=== PATIENT | female | born 1965 | race Caucasian/White ===

== ENCOUNTER 2016-08-28 13:49 | Emergency (ER) | payer OTHER ==
[~2016-08-28] VITALS: Ht 162.6 cm; Wt 90.7 kg
--- NOTE | ~2016-08-28 | EKG ---
[place] [address] [facility] [employer] [place] [address] ELECTROCARDIOGRAM REPORT Name: LYLABLANCA SOTO Room #: DEP [facility]#: [id number] Admission: 08/28/16 Attend Phys: Discharge: 08/28/16 Date of : 63 Report #: [id number] THIS REPORT FOR: //name// [facility] ED Test Date: 2016-08-28 Test Time: 15:40:05 Pat Name: BLANCA ARITA Department: Room: Gender: F Orthotist/Prosthetist: : 1965 Requested By: Bello Azul Order Number: [id number] MD: Ezra Sommers Measurements Intervals [place] Rate: 95 P: 52 MS: 159 QRS: 4 QRSD: 89 T: 4 QT: 397 QTc: 499 Interpretive Statements Sinus rhythm Poor R-wave progression No previous ECG available for comparison Electronically Signed On 08-29-2016 14:22:00 AUTO STRIPER by Ezra Sommers [email or web address] <ELECTRONICALLY SIGNED> By: Ezra Sommers MD, [facility] 08/29/16 1422 1540 1540 Ezra Sommers MD, FACC /EPI
[~2016-08-28 13:49] MED LIST: ACYCLOVIR 400400 MG; ADVAIR 100-501 EACH; ALBUTEROL2.5 MG/0.5; ALBUTEROL2.5 MG/0.5 INH; AMARYL4 MG PO; AZELASTINE137 MCG/0. NASAL; CALCIUM 500 +1 EAC5 PO; CARVEDILOL12.5 MG PO; CIPROFLOXACIN500 M1 PO; CITRATE OF MAG296 ML PO; COLACE100 MG PO; CYTOMEL 25 MCG25 MC1 PO; DILTIAZEM 24HR120 M2 PO; DOXEPIN 10 MG C10 MG PO; DRISDOL50000 UNIT PO; ESTRADIOL TRAN1 EAC2 TOP; FOLIC ACID1 MG; HUMALOG PE100 UNIT/M; HUMALOG100 UNIT/1; IBUPROFEN 600600 M1 PO; IBUPROFEN 800800 M1 PO; KLONOPIN0.5 MG; LAMICTAL XR100 MG PO; LANTUS SOL100 UNIT/1; LANTUS SOL100 UNIT/1 SUBQ; LANTUS100 UNIT/M; LEVOTHYROXIN0.125 M1 PO; LIPITOR80 MG; LIPITOR80 MG PO; LISINOPRIL10 MG PO; LORATIDINE 10 M10 M1; MACRODANTIN25 MG; NASONEX17 GM; NASONEX17 GM NASAL; NORCO 5-325 TA1 EACH PO; OMEPRAZOLE20 MG PO; PRINIVIL10 MG PO; PROVENTIL HFA6.7 G1; REGLAN 10 MG TA10 MG PO; SINGULAIR 10 MG10 M1; SPIRIVA INH; TESSALON PERLE100 MG; TRICOR145 MG PO; VALIUM2 MG PO; ZOFRAN ODT4 MG PO; ZOFRAN4 MG PO; ZPAK PO; ZYRTEC 10 MG TA10 MG PO
[2016-08-28] MEDS ORDERED: HUMULIN R500 UNIT/1 SUBQ (14:14)
[2016-08-28 14:39] LABS: ABSOLUTE NEUTROPHILS 9.8 thou/uL (1.4-8.2); BASOPHILS 0.4 % (0.0-2.0); EOSINOPHILS 0.1 % (0.0-3.0); HEMATOCRIT 41.9 % (37.0-47.0); HEMOGLOBIN 14.7 gm/dL (12.0-15.0); LYMPHOCYTES 8.4 % (24.0-44.0); MANUAL DIFF NO; MCH 34.1 pg (26.0-34.0); MCV 97.4 fL (80.0-100.0); MONOCYTES 0.7 % (1.0-8.0); PLATELET COUNT 338 thou/uL (150-400); POLYS 90.4 % (36.0-66.0); RDW 13.2 % (10.5-14.5); WBC 10.9 thou/uL (4.0-11.0)
[2016-08-28 14:42] LABS: CALCIUM 9.7 mg/dL (8.5-10.1); CREATININE 0.9 mg/dL (0.6-1.3); POTASSIUM 3.9 mmol/L (3.5-5.1)
[2016-08-28 14:48] LABS: ALBUMIN 3.8 g/dL (3.4-5.0); TOTAL BILIRUBIN 0.3 mg/dL (<0.1-1.0); TOTAL PROTEIN 8.3 g/dL (6.4-8.2)
[2016-08-28] MEDS ORDERED: REGLAN 10 MG TA10 MG PO (16:26)
[2016-08-28] MEDS ORDERED: NAPROSYN500 MG PO (16:26)
[2016-08-28 16:39] VITALS: BP 139/81
== END 2016-08-28 16:40 | disposition home or self-care (01) ==
LOC: ER 13:49
PROVIDERS: Emergency Medicine
DX: R51 Headache (principal); R11.0 Nausea; M54.2 Cervicalgia; R53.83 Other fatigue; J45.909 Unspecified asthma, uncomplicated; E11.9 Type 2 diabetes mellitus without complications; I10 Essential (primary) hypertension; E78.5 Hyperlipidemia, unspecified; Z90.49 Acquired absence of other specified parts of digestive tract; Z90.711 Acquired absence of uterus with remaining cervical stump; Z98.890 Other specified postprocedural states; E03.9 Hypothyroidism, unspecified; Z91.041 Radiographic dye allergy status; Z88.6 Allergy status to analgesic agent; F17.210 Nicotine dependence, cigarettes, uncomplicated

== ENCOUNTER → 2017-10-19 | Outpatient (CLI) | payer OTHER ==
[~2017-10-19] MED LIST changes: +HUMULIN R500 UNIT/1 SUBQ; +NAPROSYN500 MG PO
== END ==
LOC: RAD 11:37
DX: J45.40 Moderate persistent asthma, uncomplicated (principal)

== ENCOUNTER → 2017-10-26 | Outpatient (CLI) | payer OTHER | LOC: ULTRA 09:14 | DX: E04.2 Nontoxic multinodular goiter (principal) ==

== ENCOUNTER → 2017-12-05 | Outpatient (CLI) | payer OTHER | LOC: SLEEPLAB 19:01 | DX: G47.33 Obstructive sleep apnea (adult) (pediatric) (principal) ==

== ENCOUNTER → 2018-09-18 | Outpatient (CLI) | payer OTHER | LOC: CAT 10:12 | DX: J45.50 Severe persistent asthma, uncomplicated (principal); K76.0 Fatty (change of) liver, not elsewhere classified; J84.10 Pulmonary fibrosis, unspecified; B44.9 Aspergillosis, unspecified; Z90.49 Acquired absence of other specified parts of digestive tract ==

== ENCOUNTER → 2019-06-28 | Outpatient (CLI) | payer OTHER | LOC: RAD 07:14 | DX: J45.50 Severe persistent asthma, uncomplicated (principal) ==